=== PATIENT | male | born 1960 | race Hispanic/Latino ===

== ENCOUNTER 2018-04-12 17:52 | Emergency (ER) | payer SELFPAY ==
[2018-04-12] MEDS ORDERED: BABY ASPIRIN PO ONE (18:14)
[2018-04-12] MEDS ORDERED: ZOFRAN ODT ONE (18:18)
[2018-04-12] MEDS ORDERED: ZOFRAN ODT PO ONE (18:22)
[2018-04-12 19:20] LABS: Partial Thromboplastin Time 24.4 Sec. (24.2-36.6)
[2018-04-12 19:25] LABS: BUN/Creatinine Ratio 15; Blood Urea Nitrogen 12 mg/dL (9-20); Calcium 8.8 mg/dL (8.4-10.2); Hemolysis Index 48; Lipase 30 units/L (13-60)
[2018-04-12 20:03] LABS: Hematocrit 45.1 % (35.5-45.6); Hemoglobin 15.4 gm/dl (11.8-15.2); Lymphocytes % (Auto) 29.7 % (13.4-35.0); Mean Corpuscular HGB Conc 34 % (32-34); Mean Corpuscular Hemoglobin 33 pg (28-32); Mean Corpuscular Volume 96 fl (84-94); Platelet Count 269 K/mm3 (140-440); Red Cell Distribution Width 13.6 % (13.2-15.2)
[2018-04-12 20:04] LABS: Monocytes % (Auto) 5.9 % (0.0-7.3)
[2018-04-12 20:05] LABS: Basophils % (Auto) 1.1 % (0.0-1.8); Eosinophils # (Auto) 0.2 K/mm3 (0.0-0.4); Eosinophils % (Auto) 3.5 % (0.0-4.3); Lymphocytes # (Auto) 2.1 K/mm3 (1.2-5.4); Monocytes # (Auto) 0.4 K/mm3 (0.0-0.8)
[2018-04-12 20:06] LABS: Basophils # (Auto) 0.1 K/mm3 (0.0-0.1)
--- NOTE | 2018-04-12 22:00 | XRay Report ---
FINAL REPORT PROCEDURE: XR CHEST 1V AP TECHNIQUE: Chest radiograph anteroposterior view. CPT 98985 HISTORY: Chest Pain COMPARISON: No prior studies are available for comparison. FINDINGS: Heart: Normal. Mediastinum/Vessels: Calcified lymph nodes in the left hilum. Lungs/Pleural space: Lungs are hyperexpanded. No focal infiltrate. Left lung granuloma. Bony thorax: No acute osseous abnormality. Life support devices: None. IMPRESSION: No acute cardiopulmonary abnormality.
[2018-04-13] MEDS ORDERED: TORADOL IM ONE (00:13)
[2018-04-13] MEDS ORDERED: PEPCID PO ONE (00:14)
--- NOTE | 2018-04-13 00:21 | Emergency Department Report ---
HPI - General Chief Complaint: Chest Pain Time Seen by Provider: 04/13/18 00:12 - [facility] HPI: The patient is a 58 yo male who presents for evaluation of midsternal chest pain and upper abdominal pain. The patient states that his pain is better present since this morning, greater than 8 hours prior to my evaluation, 10/10 in severity since onset, constant, burning in quality and worse with coughing. He has experienced a chronic nonproductive cough for some time. The patient denies fever, neck pain, parasthesias, dyspnea, cough, hemoptysis, palpitations , dizziness, syncope, unilateral leg swelling, calf muscle pain. Patient also denies cocaine or other stimulant use, history of DVT or PE, recent immobilization, or history of cancer. ED Past Medical Hx - Past Medical History Previous Medical History?: Yes Hx Hypertension: Yes - Surgical History Past Surgical History?: No - Social History Smoking Status: Current Some Day Smoker Substance Use Type: Alcohol - Medications Home Medications: Home Medications Medication Instructions Recorded Confirmed Last Taken Type Cyclobenzaprine HCl [Flexeril 5 MG 5 mg PO Q8HR PRN #12 tab 04/13/18 Unknown Rx TAB] Omeprazole Magnesium [PriLOSEC Otc] 20 mg PO QDAY #14 tablet. 04/13/18 Unknown Rx Ondansetron [Zofran TAB] 4 mg PO Q8HR PRN #15 tablet 04/13/18 Unknown Rx ED Review of Systems ROS: Stated complaint: CHEST PAIN Other details as noted in HPI Constitutional: denies: fever ENT: denies: throat or neck pain Respiratory: denies: cough, shortness of breath Cardiovascular: reports chest pain Endocrine: denies unexplained weight loss or gain Gastrointestinal: reports abdominal pain, nausea Genitourinary: denies: dysuria Musculoskeletal: denies: leg swelling Skin: denies: rash Neurological: denies: headache Hematological/Lymphatic: denies: easy bleeding or easy bruising Psych: denies sadness or hopelessness Physical Exam - Physical Exam Vital Signs: Vital Signs 04/12/18 18:08 Temperature 98.8 F Pulse Rate 81 Respiratory 26 H Rate Blood Pressure 127/90 O2 Sat by Pulse 96 Oximetry Physical Exam: General: well-nourished, well-developed, no acute distress Head: Normocephalic, atraumatic Eyes: normal sclera ENT: Mucous membranes are pink and moist Neck: trachea midline, neck supple, No neck stiffness, no cervical adenopathy Respiratory: Breath sounds equal bilaterally, no wheezing, rales, or rhonchi Cardio: S1 and S2 present, no murmurs, rubs, gallops, capillary refill is brisk Abdomen: Normoactive bowel sounds, soft abdomen, left upper quadrant tenderness to palpation present, no rigidity, no guarding or rebound tenderness Musc: No pitting edema Skin: No rash Neuro: no facial drooping, normal speech Psych: Normal affect ED Course Vital Signs 04/12/18 18:08 Temperature 98.8 F Pulse Rate 81 Respiratory 26 H Rate Blood Pressure 127/90 O2 Sat by Pulse 96 Oximetry ED Medical Decision Making - Lab Data Result diagrams: 04/12/18 19:35 04/12/18 18:47 - Medical Decision Making The patient was seen and examined by myself. The patient is placed on a satellite project site monitor and continuous pulse ox. On initial evaluation, the patient was found to be in no distress. EKG was negative for findings suggestive of acute cardiac infarct. Labs and imaging are obtained. The patient is given IM dose of Toradol for his pain. Chest x-ray is negative for pneumothorax, focal consolidation, pulmonary vascular congestion, pleural effusion, or other obvious acute cardiopulmonary disease process. Lab results were non-concerning including levels of troponin, WBC, hemoglobin, hematocrit, electrolytes, renal function, and negative d-dimer level. The patient was reevaluated and reported that their symptoms were markedly improved. As the patient has a CHIKIS risk score less than 2, and a well's score less than 2, with a negative d-dimer level , the patient is at low risk of ACS or pulmonary emboli etiology of their symptoms. The patient is stable for discharge with outpatient follow-up. The patient is given follow-up and return instructions. The patient expressed understanding and agreed with the plan. The patient is discharged in stable condition. Critical care attestation.: If time is entered above; I have spent that time in minutes in the direct care of this critically ill patient, excluding procedure time. ED Disposition Clinical Impression: Acute chest pain, Acute epigastric pain Disposition: - TO HOME OR SELFCARE Is pt being admited?: No Does the pt Need Aspirin: No Condition: Stable Instructions: Chest Pain (ED), Costochondritis (ED), Gastroesophageal Reflux Disease (ED) Referrals: [facility] [Provider Group] - 3-5 Days Time of Disposition: 00:16
[2018-04-13 00:29] VITALS: BP 124/89
== END 2018-04-13 00:30 | disposition home or self-care (01) ==
LOC: ED 17:52
DX: R07.9 Chest pain, unspecified (principal); R10.13 Epigastric pain; I10 Essential (primary) hypertension; F17.200 Nicotine dependence, unspecified, uncomplicated; Z88.5 Allergy status to narcotic agent
CPT/HCPCS: 36415; 71045; 80048; 83690; 84484; 85025; 85379; 85610; 85730; 93005; 93010; 96372; 99284; J1885; Q0162

== ENCOUNTER 2019-09-05 23:39 | Emergency (ER) | payer SELFPAY ==
[2019-09-05] MEDS ORDERED: PROVENTIL IH ONE (23:44)
[2019-09-05] MEDS ORDERED: ATROVENT IH ONE (23:44)
[2019-09-05] MEDS ORDERED: NACL 0.9% 1000 ML 1,000 ML IV ONE (23:44)
[2019-09-05] MEDS ORDERED: SOLU-Medrol IV ONE (23:44)
[2019-09-06] MEDS ORDERED: ZOFRAN IV ONE (00:12)
[2019-09-06] MEDS ORDERED: PEPCID IV ONE (00:12)
--- NOTE | 2019-09-06 00:26 | XRay Report ---
CHEST 1 VIEW INDICATION / CLINICAL INFORMATION: resp distress. COMPARISON: 04/12/2018 FINDINGS: SUPPORT DEVICES: None. HEART / MEDIASTINUM: No significant abnormality. LUNGS / PLEURA: No significant pulmonary or pleural abnormality. No pneumothorax. ADDITIONAL FINDINGS: Calcified granuloma in the left midlung. IMPRESSION: 1. No acute disease or change. Signer Name: Juan Vinson MD Signed: 09/06/2019 12:22 AM Workstation Name: [id number]
[2019-09-06 00:46] LABS: Basophils # (Auto) 0.1 K/mm3 (0.0-0.1); Basophils % (Auto) 0.6 % (0.0-1.8); Eosinophils # (Auto) 0.3 K/mm3 (0.0-0.4); Hematocrit 47.1 % (35.5-45.6); Lymphocytes # (Auto) 4.2 K/mm3 (1.2-5.4); Lymphocytes % (Auto) 39.3 % (13.4-35.0); Mean Corpuscular HGB Conc 34 % (32-34); Mean Corpuscular Volume 96 fl (84-94); Monocytes # (Auto) 0.8 K/mm3 (0.0-0.8); Monocytes % (Auto) 7.4 % (0.0-7.3); Platelet Count 368 K/mm3 (140-440); Red Blood Count 4.89 M/mm3 (3.65-5.03); Red Cell Distribution Width 13.7 % (13.2-15.2)
[2019-09-06 00:57] LABS: INR 0.98 (0.87-1.13); Partial Thromboplastin Time 24.1 Sec. (24.2-36.6)
[2019-09-06 01:17] LABS: BUN/Creatinine Ratio 9; Blood Urea Nitrogen 7 mg/dL (9-20); Calcium 8.7 mg/dL (8.4-10.2); Hemolysis Index 9
--- NOTE | 2019-09-06 04:51 | Emergency Department Report ---
ED Shortness of Breath HPI - General Chief Complaint: Dyspnea/Respdistress Stated Complaint: LUCIANA Time Seen by Provider: 09/05/19 23:43 Source: patient, family Mode of arrival: Ambulatory Limitations: No Limitations - History of Present Illness Initial Comments: Patient is a 59-year-old male who is presenting with shortness of breath. Patient has a history of COPD but is not oxygen dependent. Patient told family friends tonight he could not breathe. Patient also admits to drinking at least a sixpack. Patient denies chest pain shortness of breath. Patient is a poor historian - Related Data Previous Rx's Medication Instructions Recorded Last Taken Type Cyclobenzaprine HCl [Flexeril 5 MG 5 mg PO Q8HR PRN #12 tab 04/13/18 Unknown Rx TAB] Omeprazole Magnesium [PriLOSEC Otc] 20 mg PO QDAY #14 tablet. 04/13/18 Unknown Rx Ondansetron [Zofran TAB] 4 mg PO Q8HR PRN #15 tablet 04/13/18 Unknown Rx ALBUTEROL Inhaler (OR & NICU) 2 puff IH QID PRN #1 inhalation 09/06/19 Unknown Rx [ProAir HFA Inhaler] Benzonatate [Tessalon Perles] 100 mg PO Q8HR #10 capsule 09/06/19 Unknown Rx predniSONE [Deltasone] 20 mg PO QDAY #5 tab 09/06/19 Unknown Rx Allergies Allergy/AdvReac Type Severity Reaction Status Date / Time codeine AdvReac Unknown Verified 04/06/15 23:16 ED Review of Systems ROS: Stated complaint: LUCIANA Other details as noted in HPI Comment: All other systems reviewed and negative ED Past Medical Hx - Past Medical History Hx Hypertension: Yes Hx COPD: Yes - Social History Smoking Status: Current Every Day Smoker Substance Use Type: Alcohol - Medications Home Medications: Home Medications Medication Instructions Recorded Confirmed Last Taken Type Cyclobenzaprine HCl [Flexeril 5 MG 5 mg PO Q8HR PRN #12 tab 04/13/18 Unknown Rx TAB] Omeprazole Magnesium [PriLOSEC Otc] 20 mg PO QDAY #14 tablet. 04/13/18 Unknown Rx Ondansetron [Zofran TAB] 4 mg PO Q8HR PRN #15 tablet 04/13/18 Unknown Rx ALBUTEROL Inhaler (OR & NICU) 2 puff IH QID PRN #1 inhalation 09/06/19 Unknown Rx [ProAir HFA Inhaler] Benzonatate [Tessalon Perles] 100 mg PO Q8HR #10 capsule 09/06/19 Unknown Rx predniSONE [Deltasone] 20 mg PO QDAY #5 tab 09/06/19 Unknown Rx ED Physical Exam - General Limitations: No Limitations General appearance: alert, in no apparent distress - Head Head exam: Present: atraumatic, normocephalic - Eye Eye exam: Present: normal appearance - ENT ENT exam: Present: mucous membranes moist - Neck Neck exam: Present: normal inspection - Respiratory Respiratory exam: Present: respiratory distress, prolonged expiratory. Absent: normal lung sounds bilaterally, wheezes, rales, rhonchi - Cardiovascular Cardiovascular Exam: Present: regular rate, normal rhythm, normal heart sounds. Absent: systolic murmur, diastolic murmur, rubs, gallop - GI/Abdominal GI/Abdominal exam: Present: soft, normal bowel sounds. Absent: distended, tenderness, guarding, rebound - Rectal Rectal exam: Present: deferred - Extremities Exam Extremities exam: Present: normal inspection - Back Exam Back exam: Present: normal inspection - Neurological Exam Neurological exam: Present: alert, oriented X3 - Psychiatric Psychiatric exam: Present: normal affect, normal mood - Skin Skin exam: Present: warm, dry, intact, normal color. Absent: rash ED Course Vital Signs 09/05/19 09/05/19 09/05/19 23:30 23:39 23:43 Temperature 97.4 F L Pulse Rate 112 H Pulse Rate [ Anterior Bilateral Throughout] Respiratory 22 22 Rate Respiratory Rate [Anterior Bilateral Throughout] Blood Pressure Blood Pressure 200/105 [Left] O2 Sat by Pulse 96 96 Oximetry 09/05/19 09/05/19 09/06/19 23:46 23:56 00:00 Temperature Pulse Rate 100 H 103 H Pulse Rate [ 108 H Anterior Bilateral Throughout] Respiratory 27 H 27 H Rate Respiratory 32 H Rate [Anterior Bilateral Throughout] Blood Pressure 200/105 200/105 Blood Pressure [Left] O2 Sat by Pulse 95 100 Oximetry 09/06/19 09/06/19 09/06/19 00:16 00:30 00:46 Temperature Pulse Rate 107 H 108 H 103 H Pulse Rate [ Anterior Bilateral Throughout] Respiratory 30 H 21 19 Rate Respiratory Rate [Anterior Bilateral Throughout] Blood Pressure 200/105 140/105 132/80 Blood Pressure [Left] O2 Sat by Pulse 98 96 97 Oximetry 09/06/19 09/06/19 09/06/19 01:00 01:16 01:30 Temperature Pulse Rate 102 H 104 H 97 H Pulse Rate [ 95 H Anterior Bilateral Throughout] Respiratory 21 19 21 Rate Respiratory 18 Rate [Anterior Bilateral Throughout] Blood Pressure 132/80 118/82 118/82 Blood Pressure [Left] O2 Sat by Pulse 96 94 97 Oximetry 09/06/19 09/06/19 09/06/19 01:51 02:00 02:16 Temperature Pulse Rate 94 H 91 H 91 H Pulse Rate [ Anterior Bilateral Throughout] Respiratory 16 13 18 Rate Respiratory Rate [Anterior Bilateral Throughout] Blood Pressure 132/80 125/80 122/81 Blood Pressure [Left] O2 Sat by Pulse 95 96 94 Oximetry 09/06/19 09/06/19 09/06/19 02:30 02:46 03:00 Temperature Pulse Rate 94 H 90 90 Pulse Rate [ Anterior Bilateral Throughout] Respiratory 21 18 20 Rate Respiratory Rate [Anterior Bilateral Throughout] Blood Pressure 117/70 125/80 122/75 Blood Pressure [Left] O2 Sat by Pulse 95 96 95 Oximetry 09/06/19 09/06/19 09/06/19 03:16 03:30 03:46 Temperature Pulse Rate 92 H 91 H 93 H Pulse Rate [ Anterior Bilateral Throughout] Respiratory 18 21 19 Rate Respiratory Rate [Anterior Bilateral Throughout] Blood Pressure 117/70 127/75 122/75 Blood Pressure [Left] O2 Sat by Pulse 97 97 97 Oximetry 09/06/19 04:00 Temperature Pulse Rate 90 Pulse Rate [ Anterior Bilateral Throughout] Respiratory 18 Rate Respiratory Rate [Anterior Bilateral Throughout] Blood Pressure 113/73 Blood Pressure [Left] O2 Sat by Pulse 97 Oximetry ED Medical Decision Making - Lab Data Result diagrams: 09/06/19 00:19 09/06/19 00:19 Lab Results 09/06/19 09/06/19 09/06/19 Range/Units 00:19 00:19 00:19 WBC 10.8 (4.5-11.0) K/mm3 RBC 4.89 (3.65-5.03) M/mm3 Hgb 16.0 H (11.8-15.2) gm/dl Hct 47.1 H (35.5-45.6) % MCV 96 H (84-94) fl MCH 33 H (28-32) pg MCHC 34 (32-34) % RDW 13.7 (13.2-15.2) % Plt Count 368 (140-440) K/mm3 Lymph % (Auto) 39.3 H (13.4-35.0) % Stevens % (Auto) 7.4 H (0.0-7.3) % Eos % (Auto) 3.0 (0.0-4.3) % Baso % (Auto) 0.6 (0.0-1.8) % Lymph # 4.2 (1.2-5.4) K/mm3 Stevens # 0.8 (0.0-0.8) K/mm3 Eos # 0.3 (0.0-0.4) K/mm3 Baso # 0.1 (0.0-0.1) K/mm3 Seg Neutrophils % 49.7 (40.0-70.0) % Seg Neutrophils # 5.4 (1.8-7.7) K/mm3 PT 12.7 (12.2-14.9) Sec. INR 0.98 (0.87-1.13) APTT 24.1 L (24.2-36.6) Sec. D-Dimer 139.58 (0-234) ng/mlDDU POC ABG pH (7.35-7.45) POC ABG pCO2 (35-45) POC ABG pO2 (80-105) POC ABG HCO3 (22-26 mml/L) POC ABG Total CO2 (23-27mmol/L) POC ABG O2 Sat POC ABG Base Excess ((-2) - (+3)mmol/L) FiO2 % Sodium 143 (137-145) mmol/L Potassium 3.6 (3.6-5.0) mmol/L Chloride 105.0 (98-107) mmol/L Carbon Dioxide 21 L (22-30) mmol/L Anion Gap 21 mmol/L BUN 7 L (9-20) mg/dL Creatinine 0.8 (0.8-1.5) mg/dL Estimated GFR > 60 ml/min BUN/Creatinine Ratio 9 % Glucose 84 (75-100) mg/dL Calcium 8.7 (8.4-10.2) mg/dL Troponin T < 0.010 (0.00-0.029) ng/mL NT-Pro-B Natriuret Pep 74.29 (0-900) pg/mL Plasma/Serum Alcohol (0-0.07) % 09/06/19 09/06/19 Range/Units 00:19 01:56 WBC (4.5-11.0) K/mm3 RBC (3.65-5.03) M/mm3 Hgb (11.8-15.2) gm/dl Hct (35.5-45.6) % MCV (84-94) fl MCH (28-32) pg MCHC (32-34) % RDW (13.2-15.2) % Plt Count (140-440) K/mm3 Lymph % (Auto) (13.4-35.0) % Stevens % (Auto) (0.0-7.3) % Eos % (Auto) (0.0-4.3) % Baso % (Auto) (0.0-1.8) % Lymph # (1.2-5.4) K/mm3 Stevens # (0.0-0.8) K/mm3 Eos # (0.0-0.4) K/mm3 Baso # (0.0-0.1) K/mm3 Seg Neutrophils % (40.0-70.0) % Seg Neutrophils # (1.8-7.7) K/mm3 PT (12.2-14.9) Sec. INR (0.87-1.13) APTT (24.2-36.6) Sec. D-Dimer (0-234) ng/mlDDU POC ABG pH 7.388 (7.35-7.45) POC ABG pCO2 36.1 (35-45) POC ABG pO2 68 L (80-105) POC ABG HCO3 21.8 (22-26 mml/L) POC ABG Total CO2 23 (23-27mmol/L) POC ABG O2 Sat 93 POC ABG Base Excess -3 ((-2) - (+3)mmol/L) FiO2 21 % Sodium (137-145) mmol/L Potassium (3.6-5.0) mmol/L Chloride (98-107) mmol/L Carbon Dioxide (22-30) mmol/L Anion Gap mmol/L BUN (9-20) mg/dL Creatinine (0.8-1.5) mg/dL Estimated GFR ml/min BUN/Creatinine Ratio % Glucose (75-100) mg/dL Calcium (8.4-10.2) mg/dL Troponin T (0.00-0.029) ng/mL NT-Pro-B Natriuret Pep (0-900) pg/mL Plasma/Serum Alcohol 0.15 H (0-0.07) % - EKG Data -: EKG Interpreted by Me EKG shows normal: sinus rhythm, axis, intervals, QRS complexes, ST-T waves Rate: tachycardia - Radiology Data X-ray was within normal limits - Medical Decision Making Disposition is presenting stating that he is very short of breath hours beginning. Symptoms. Patient's O2 sat is within normal limits even on room air. Patient is not wheezing but does have a prolonged expiratory phase. Neb treatment was given. The patient's histrionic behavior likely secondary to alcohol intoxication. Patient after receiving neb treatment did fall asleep restful. Patient be discharged home with albuterol inhaler. Critical care attestation.: If time is entered above; I have spent that time in minutes in the direct care of this critically ill patient, excluding procedure time. ED Disposition Clinical Impression: COPD exacerbation, Alcohol intoxication Disposition: DC-01 TO HOME OR SELFCARE Is pt being admited?: No Does the pt Need Aspirin: No Condition: Stable Instructions: Chronic Obstructive Pulmonary Disease (ED) Referrals: PRIMARY CARE, [Primary Care Provider] - 3-5 Days Time of Disposition: 04:50
[2019-09-06 10:04] VITALS: BP 134/54
== END 2019-09-06 09:30 | disposition home or self-care (01) ==
LOC: ED 23:39
DX: J44.1 Chronic obstructive pulmonary disease with (acute) exacerbation (principal); F10.129 Alcohol abuse with intoxication, unspecified; I10 Essential (primary) hypertension; F17.200 Nicotine dependence, unspecified, uncomplicated; Z79.899 Other long term (current) drug therapy; Z88.5 Allergy status to narcotic agent
CPT/HCPCS: 36415; 71045; 80048; 82803; 83880; 84484; 85025; 85379; 85610; 85730; 93005; 93010; 94644; 94645; 96374; 99284; J2930; J7030; 80320; G0480

== ENCOUNTER 2020-08-23 00:19 | Emergency (ER) | payer SELFPAY ==
[2020-08-23 00:44] VITALS: BP 157/96
--- NOTE | 2020-08-23 01:13 | XRay Report ---
LEFT HAND 3 VIEWS INDICATION / CLINICAL INFORMATION: injury. COMPARISON: None available. FINDINGS: BONES/JOINT(S): No acute fracture or subluxation. Remote healed fracture of the fifth metacarpal shaf t. No chronic avulsion fracture of the tip of the radial styloid. 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 SOFT TISSUES: No significant abnormality. ADDITIONAL FINDINGS: None. Signer Name: Matt Franco MD Signed: 08/23/2020 1:09 AM Workstation Name: [email or web address]
--- NOTE | 2020-08-23 01:38 | Emergency Department Report ---
ED General Adult HPI - General Chief complaint: Extremity Injury, Upper Stated complaint: LT HAND BROKEN Time Seen by Provider: 08/23/20 01:00 Source: patient Mode of arrival: Wheelchair Limitations: Physical Limitation - History of Present Illness Initial comments: 60-year-old male patient presents with complaints of left hand injury and lacerations x today. Patient states a ladder clamp down onto his hand crushing it. He rates his pain is 8/10 in severity. He denies any numbness/tingling. He does report some difficulty moving the first second and third fingers due to pain. Last tetanus vaccination was within 5 years per patient - Related Data Previous Rx's Medication Instructions Recorded Last Taken Type Cyclobenzaprine HCl [Flexeril 5 MG 5 mg PO Q8HR PRN #12 tab 04/13/18 Unknown Rx TAB] Omeprazole Magnesium [PriLOSEC Otc] 20 mg PO QDAY #14 tablet. 04/13/18 Unknown Rx Ondansetron [Zofran TAB] 4 mg PO Q8HR PRN #15 tablet 04/13/18 Unknown Rx ALBUTEROL NEB's [Proventil 0.083% 2.5 mg IH TID PRN #20 neb 09/06/19 Unknown Rx NEBS] Albuterol Mdi (or & Nicu Only) 2 puff IH QID PRN #1 inhalation 09/06/19 Unknown Rx [ProAir HFA Inhaler] Benzonatate [Tessalon Perles] 100 mg PO Q8HR #10 capsule 09/06/19 Unknown Rx predniSONE [Deltasone] 20 mg PO QDAY #5 tab 09/06/19 Unknown Rx Diclofenac Sodium 75 mg PO BID PRN #14 tablet. 08/23/20 Unknown Rx Mupirocin [Bactroban 2% OINT] 1 applic TP TID 7 Days #1 tube 08/23/20 Unknown Rx cephALEXin [Keflex] 500 mg PO Q8HR 7 Days #21 cap 08/23/20 Unknown Rx traMADoL [Ultram 50 MG tab] 50 mg PO Q6HR PRN #8 tablet 08/23/20 Unknown Rx Allergies Allergy/AdvReac Type Severity Reaction Status Date / Time codeine AdvReac Unknown Verified 04/06/15 23:16 ED Review of Systems ROS: Stated complaint: LT HAND BROKEN Other details as noted in HPI Constitutional: denies: chills, fever, malaise Respiratory: denies: cough, shortness of breath Musculoskeletal: arthralgia. denies: joint swelling Skin: denies: change in color Neurological: denies: numbness, paresthesias Hematological/Lymphatic: denies: easy bleeding ED Past Medical Hx - Past Medical History Hx Hypertension: Yes Hx COPD: Yes - Social History Smoking Status: Never Smoker Substance Use Type: Alcohol - Medications Home Medications: Home Medications Medication Instructions Recorded Confirmed Last Taken Type Cyclobenzaprine HCl [Flexeril 5 MG 5 mg PO Q8HR PRN #12 tab 04/13/18 Unknown Rx TAB] Omeprazole Magnesium [PriLOSEC Otc] 20 mg PO QDAY #14 tablet. 04/13/18 Unknown Rx Ondansetron [Zofran TAB] 4 mg PO Q8HR PRN #15 tablet 04/13/18 Unknown Rx ALBUTEROL NEB's [Proventil 0.083% 2.5 mg IH TID PRN #20 neb 09/06/19 Unknown Rx NEBS] Albuterol Mdi (or & Nicu Only) 2 puff IH QID PRN #1 inhalation 09/06/19 Unknown Rx [ProAir HFA Inhaler] Benzonatate [Tessalon Perles] 100 mg PO Q8HR #10 capsule 09/06/19 Unknown Rx predniSONE [Deltasone] 20 mg PO QDAY #5 tab 09/06/19 Unknown Rx Diclofenac Sodium 75 mg PO BID PRN #14 tablet. 08/23/20 Unknown Rx Mupirocin [Bactroban 2% OINT] 1 applic TP TID 7 Days #1 tube 08/23/20 Unknown Rx cephALEXin [Keflex] 500 mg PO Q8HR 7 Days #21 cap 08/23/20 Unknown Rx traMADoL [Ultram 50 MG tab] 50 mg PO Q6HR PRN #8 tablet 08/23/20 Unknown Rx ED Physical Exam - General Limitations: Physical Limitation General appearance: alert, in no apparent distress - Head Head exam: Present: atraumatic, normocephalic - Eye Eye exam: Present: normal appearance. Absent: scleral icterus - Neck Neck exam: Present: normal inspection - Respiratory Respiratory exam: Present: normal lung sounds bilaterally. Absent: respiratory distress - Cardiovascular Cardiovascular Exam: Present: regular rate, normal rhythm - Extremities Exam Extremities exam: Present: other (Tenderness to palpation noted of left first second and third digit with 3 cm laceration noted to anterior proximal portion of the second digit; minimal active bleeding. No obvious foreign bodies; normal sensation and perfusion noted of all 5 fingers; normal radial and ulnar pulse noted; mildly decreased flexion of the first second and third digits secondary to pain; mild swelling noted to third digit without erythema;) - Neurological Exam Neurological exam: Present: alert, oriented X3, normal gait - Psychiatric Psychiatric exam: Present: normal affect, normal mood - Skin Skin exam: Present: warm, dry, normal color. Absent: rash ED Course Vital Signs 08/23/20 08/23/20 00:28 02:09 Temperature 98.6 F Pulse Rate 109 H 102 H Respiratory 17 17 Rate Blood Pressure 157/96 O2 Sat by Pulse 96 97 Oximetry - Laceration /Wound Repair Finger Wound Location: upper extremity (Left second finger) Wound Length (cm): 3 Wound's Depth, Shape: linear Irrigated w/ Saline (ccs): 50 Betadine Prep?: Yes Anesthesia: 1% Lidocaine Volume Anesthetic (ccs): 4 Suture Size/Type: 4:0, proline Number of Sutures: 7 (Simple interrupted) Layer Closure?: No Sterile Dressing Applied?: Yes Progress: Minimal bleeding occurred. Patient tolerated procedure well without any immediate complications. Normal range of motion and perfusion of the fingers noted post procedure ED Medical Decision Making - Radiology Data Radiology results: report reviewed LEFT HAND 3 VIEWS INDICATION / CLINICAL INFORMATION: injury. COMPARISON: None available. FINDINGS: BONES/JOINT(S): No acute fracture or subluxation. Remote healed fracture of the fifth metacarpal shaft. No chronic avulsion fracture of the tip of the radial styloid. 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 - Medical Decision Making 60-year-old male patient presents with complaints of left hand injury and lacerations x today. Patient states a ladder clamp down onto his hand cru shing it. He rates his pain is 8/10 in severity. He denies any numbness/tingling. He does report some difficulty moving the first second and third fingers due to pain. Last tetanus vaccination was within 5 years per patient X-ray is negative for any acute bony abnormalities. Lacerations repaired. Patient tolerated procedure well. Discussed wound care, crush injury precautions, and strict return precautions in detail with patient who verbalized understanding. Patient is to return to the ED in 10 days for suture removal. He is well-appearing, his vitals are normal, he is stable for discharge home. Critical care attestation.: If time is entered above; I have spent that time in minutes in the direct care of this critically ill patient, excluding procedure time. ED Disposition Clinical Impression: Crushing injury of left hand Qualifiers: Encounter type: initial encounter Qualified Code(s): S67.22XA - Crushing injury of left hand, initial encounter Laceration of left hand Qualifiers: Encounter type: initial encounter Foreign body presence: without foreign body Qualified Code(s): S61.412A - Laceration without foreign body of left hand, initial encounter Disposition: TO HOME OR SELFCARE Is pt being admited?: No Condition: Stable Instructions: Suture Care (ED), Laceration (ED), Hand Sprain (ED) Additional Instructions: Return to the emergency department in 10 days for suture removal Prescriptions: Mupirocin [Bactroban 2% OINT] 1 applic TP TID 7 Days #1 tube Diclofenac Sodium 75 mg PO BID PRN #14 tablet. PRN Reason: pain cephALEXin [Keflex] 500 mg PO Q8HR 7 Days #21 cap traMADoL [Ultram 50 MG tab] 50 mg PO Q6HR PRN #8 tablet PRN Reason: Pain , Severe (7-10) Referrals: [facility] [Provider Group] - 3-5 Days
[2020-08-23] MEDS ORDERED: LIDOCAINE (1%) 10 MG/1 ML VIAL 20 ML MDV INFILTRATI ONE (01:46)
[2020-08-23] MEDS ORDERED: IBUPROFEN 800 MG TAB PO ONE (01:46)
[2020-08-23] MEDS ORDERED: oxyCODONE /ACETAMINOPHEN 5-325MG TAB PO ONE (02:38)
== END 2020-08-23 04:36 | disposition home or self-care (01) ==
LOC: ED 00:19
DX: S61.211A Laceration without foreign body of left index finger without damage to nail, initial encounter (principal); S67.22XA Crushing injury of left hand, initial encounter; I10 Essential (primary) hypertension; J44.9 Chronic obstructive pulmonary disease, unspecified; Z79.899 Other long term (current) drug therapy; Z88.6 Allergy status to analgesic agent; W11.XXXA Fall on and from ladder, initial encounter; Y93.89 Activity, other specified; Y92.89 Other specified places as the place of occurrence of the external cause; Y99.8 Other external cause status